=== PATIENT | male | born 1965 ===

== ENCOUNTER 2024-08-04 15:32 | Emergency (ER) | payer SELFPAY ==
--- NOTE | ~2024-08-04 | XR_ITS ---
CHEST RADIOGRAPH, PA AND LATERAL CLINICAL HISTORY: chest pain, FEVER . COMPARISON: None available TECHNIQUE: PA and lateral views of the chest. FINDINGS The cardiomediastinal silhouette is unremarkable. The lungs are clear. Visualized osseous structures and soft tissues are unremarkable. IMPRESSION: No focal infiltrate or effusion. Reviewed, dictated and finalized at location [facility]. [facility]
--- NOTE | 2024-08-04 15:35 | ECG_ITS ---
Test Date: 2024-08-04 15:45:01 Measurements Intervals [place] Rate: 60 P: 35 OK: 193 QRS: 49 QRSD: 90 T: 44 QT: 402 QTc: 403 Interpretive Statements SINUS RHYTHM NORMAL ECG No previous ECG available for comparison Electronically Signed On 08-04-2024 19:46:05 RATE QUOTING OPERATOR by Hi Mckeon D.O.
[2024-08-04 15:37] VITALS: BP 139/67; PULSE 62; RESP 12; TEMP 36.1; O2SAT 98
[2024-08-04 15:48] LABS: Basophils Percent Auto 0.3 % (0.2-1.2); Eosinophils Absolute Auto 0.2 K/mm3 (0-0.3); Eosinophils Percent Auto 2.1 % (0-4.4); Hematocrit 41.6 % (42.0-52.0); Hemoglobin 14.6 g/dL (14.0-18.0); Immature Granulocyte Absolute 0.05 K/mm3 (0.00-0.031); Immature Granulocyte Percent A 0.7 % (0-0.5); Lymphocytes Absolute Auto 1.64 K/mm3 (0.9-3.2); Lymphocytes Percent Auto 23.3 % (18.3-44.2); Mean Corpuscular HGB Conc 35.1 g/dl (32-36); Mean Corpuscular Hemoglobin 29.7 pg (26-34); Mean Corpuscular Volume 84.7 fl (80-100); Mean Platelet Volume 9.8 fl (7.4-10.4); Monocytes Absolute Auto 0.5 K/mm3 (0.1-0.6); Monocytes Percent Auto 6.8 % (2.6-8.5); Neutrophils Absolute Auto 4.7 K/mm3 (1.3-6.7); Neutrophils Percent Auto 66.8 % (45.5-73.1); Platelet Count Result 235 k/mm3 (150-375); Red Blood Count 4.91 M/mm3 (4.6-6.20); Red Cell Distribution Width 11.9 % (11.5-14.5); White Blood Count 7.1 K/mm3 (4.5-10.0)
[2024-08-04] MEDS: ASPIRIN 81 MG CHEWABLE TABLET 324 MG PO (15:49)
--- NOTE | 2024-08-04 15:51 | ED.CHESTPAIN ---
HPI - Chest Pain General Chief Complaint: Chest Pain Stated Complaint: nausea, CP Time Seen by Provider: 08/04/24 15:44 History of Present Illness HPI narrative: 59-year-old otherwise healthy male presenting to the emergency department for evaluation of some chest discomfort radiating towards his neck. Patient states that he is driving from [place] up to home in [place]. Just completed a meal at a rest stop and was having pain and discomfort so he came to the hospital for evaluation. Endorses some mild nauseousness but both his chest pain and nausea have resolved upon arrival to the ER. No back pain, abdominal pain, throwing up, diarrhea, headache, vision changes, fever, chills. No injury trauma. No history of blood clots. Does not take any blood pressure medications, takes medications for anxiety depression but no other medications. Related Data Allergies Allergy/AdvReac Type Severity Reaction Status Date / Time No Known Allergies Allergy Verified 08/04/24 15:34 Review of Systems Review of Systems: As reviewed above in HPI Exam Narrative: GENERAL: [Well-appearing, well-nourished, and in no acute distress.] HEAD: [Normocephalic, atraumatic.] EYES: [PERRLA and EOMI.] ENT: Nares clear, no rhinorrhea or epistaxis. Mucous membranes moist. NECK: Supple. CHEST: [Clear to auscultation. No respiratory distress.] HEART: [Regular rate and rhythm]. No murmur heard. [Normal peripheral pulses.] ABDOMEN: [Soft, nondistended], [nontender], [No rigidity or guarding] EXTREMITIES: Normal range of motion. [No edema.] SKIN: Warm, dry, no rash. NEURO: [No focal deficits]. Alert and oriented [x3.] PSYCH: [Normal mood and affect.] Course Vital Signs Vital signs: Vital Signs Temperature 36.1 C L 08/04/24 15:37 Pulse Rate 62 08/04/24 15:37 Respiratory Rate 12 08/04/24 15:37 Blood Pressure 139/67 08/04/24 15:37 Pulse Oximetry 98 08/04/24 15:37 Oxygen Delivery Room Air 08/04/24 15:37 Temperature 36.1 C L 08/04/24 15:37 Pulse Rate 62 08/04/24 15:37 Respiratory Rate 12 08/04/24 15:37 Blood Pressure 139/67 08/04/24 15:37 Pulse Oximetry 98 08/04/24 15:37 Oxygen Delivery Room Air 08/04/24 15:44 MDM - Chest Pain MDM Narrative Medical decision making narrative: 59-year-old otherwise healthy appearing male presenting to the emergency department for evaluation of chest discomfort radiating towards his neck. Had just finished a meal at a rest stop and was having some chest discomfort while driving so he came to the ER for evaluation. He reports that his symptoms have since stopped and he is not have any chest pain, difficulty breathing, nauseousness, abdominal pain or back pain at this time. Was otherwise in his normal state of health. No history of thrombotic event such as DVT or PE. No evidence of DVT on examination. Strong symmetric pulses in all limbs, warm extremities, clear breath sounds throughout, no chest discomfort presently. Low suspicion ACS or pneumonia, possible early for GERD gastritis. Less likely pneumothorax, low Wells criteria for thromboembolic events and PE can be safely excluded with the lack of vital concerns such as tachycardia or fever. He has normal vital signs. Troponin, EKG, chest x-ray, laboratory studies, lipase and treatment with Pepcid and Zofran provided. Workup shows no leukocytosis or anemia. Normal platelet level. Coagulation studies within normal limits, electrolytes within normal limits, normal renal function panel, normal hepatic function panel, normal glucose. Negative undetectable troponin, negative lipase. Chest x-ray shows no infiltrates or effusion. EKG was normal sinus rhythm without ischemia. Patient was re-evaluated with improvement in the symptoms. Safe and stable for discharge home at this time with outpatient follow-up. Medical Records Data Attestation: I reviewed the patient's medical records. Lab Data Attestation: I reviewed the patient's lab results. 08/04/24 15:44 08/04/24 15:44 Labs: Lab Results 08/04/24 Range/Units 15:44 WBC 7.1 (4.5-10.0) K/mm3 RBC 4.91 (4.6-6.20) M/mm3 Hgb 14.6 (14.0-18.0) g/dL Hct 41.6 L (42.0-52.0) % MCV 84.7 (80-100) fl MCH 29.7 (26-34) pg MCHC 35.1 (32-36) g/dl RDW 11.9 (11.5-14.5) % Plt Count 235 (150-375) k/mm3 MPV 9.8 (7.4-10.4) fl Immature Gran % (Auto) 0.7 H (0-0.5) % Neut % (Auto) 66.8 (45.5-73.1) % Lymph % (Auto) 23.3 (18.3-44.2) % [place] % (Auto) 6.8 (2.6-8.5) % Eos % (Auto) 2.1 (0-4.4) % Baso % (Auto) 0.3 (0.2-1.2) % Lymph # (Auto) 1.64 (0.9-3.2) K/mm3 [place] # (Auto) 0.5 (0.1-0.6) K/mm3 Eos # (Auto) 0.2 (0-0.3) K/mm3 Baso # (Auto) 0.0 (0.0-0.1) K/mm3 Abs Immat Gran (auto) 0.05 H (0.00-0.031) K/mm3 Absolute Neuts (auto) 4.7 (1.3-6.7) K/mm3 Absolute Nucleated RBC 0.000 (0.0-0.012) K/mm3 Nucleated RBC % 0.0 (0.0-0.2) % PT 13.6 (11.1-14.7) Seconds INR 1.0 APTT 27.9 (22.3-36.8) Seconds Sodium 139 (137-145) mmol/L Potassium 3.8 (3.4-5.0) mmol/L Chloride 105 (98-107) mmol/L Carbon Dioxide 25 (22-30) mmol/L Anion Gap 9 (4-12) mmol/L BUN 11 (9-20) mg/dL Creatinine 0.67 L (0.7-1.3) mg/dL Estim Creat Clear Calc 103 ml/min Estimated GFR > 60 (59 - ) Glucose 116 H (65-110) mg/dL Calcium 8.9 (8.4-10.2) mg/dL Total Bilirubin 1.4 H (0.2-1.3) mg/dL AST 19 (17-59) U/L ALT 17 (6-50) U/L Alkaline Phosphatase 61 (38-126) U/L Troponin I < 0.012 (0.000-0.034) ng/mL Total Protein 7.0 (6.3-8.2) g/dL Albumin 4.0 (3.5-5.1) g/dL Lipase 22 L (23-300) U/L Imaging Data Attestation: I personally reviewed and interpreted this imaging study as follows: My impression: Impressions Chest X-Ray 08/04/24 16:16 IMPRESSION: No focal infiltrate or effusion. ECG Data EKG #1: Attestation: I personally reviewed and interpreted this ECG as follows: ECG completion date: 08/04/24 ECG completion time: 15:45 Prior ECG tracings: not available for review Interpretation: Normal sinus rhythm, no signs of ST segment elevations, depressions or inversions. Regular rate rhythm and axis, QTC 4 3, QRS 90, MS interval 193. No previous EKG for comparison. Overall normal sinus rhythm. EKG Interpretation: sinus rhythm Discharge Plan Discharge Clinical Impression: Chest pain Patient Disposition: Home, Self-Care Condition: Stable Instructions: Antibiotic Form, Chest Pain (ED) Additional Instructions: Your cardiac workup was very reassuring, urine undetectable troponin, normal electrolytes, normal liver function panel, no signs of any pneumonia or consolidation. Normal EKG. Follow-up with regular doctor, return with any new or worsening concerns at any time. Patient Language: Divehi Follow-up/Referrals: UNKNOWN,DOCTOR [Primary Care Provider] - Time of Disposition: 16:23 Quality HEART score for chest pain patients History: slightly suspicious ECG: normal Age: > 45 and < 65 years Risk factors: no risk factors known Troponin: < or = to 1x normal limit Heart score: 1
--- OUTSIDE RECORDS SUMMARY | 2024-08-04 15:56 | XMS_ITS | Clinical Summary ---
Author Organization [facility] Address [address] [place] [address] Phone Care Team Providers Care Business Practices Officer Name Role Phone Non-Staff, Physician Primary Care Provider Unava ilable Medications escitalopram oxalate (LEXAPRO) 10 mg tablet Take 10 mg by mouth daily. 11/09/2020 Active Social History Tobacco Use Types Packs/Day Years Used Date Smoking Tobacco: Unknown Sex and Gender Information Value Date Recorded Sex Assigned at Not on file Legal Sex Male 1:36 AM CDT Gender Identity Not on file Sexual Orientation Not on file Last Filed Vital Signs Vital Sign Reading Time Taken Comments Blood Pressure 134/72 11/09/2020 7:00 AM CDT Pulse 59 11/09/2020 7:00 AM CDT Temperature 36.6 C (97.8 F) 11/09/2020 1:39 AM CDT Respiratory Rate 17 11/09/2020 1:39 AM CDT Oxygen Saturation - - Inhaled Oxygen Concentration - - Weight 85 kg (187 lb 6.3 oz) 11/09/2020 1:39 AM CDT Height 175 cm (5' 8.9 ) 11/09/2020 1:39 AM CDT Body Mass Index 27.75 11/09/2020 1:39 AM CDT Plan of Treatment Health Maintenance Due Date Last Done Comments DTAP/TDAP/TD VACCINES (1 - Tdap) 1982 COLORECTAL SCREENING 2008 Colorectal Cancer Screening 2008 FIT-DNA Q 3 years 2008 FIT/FOBT Q 1 year 2008 Flex Sig/CT Colonography Q 5 years 2008 ZOSTER VACCINE (1 of 2) 2013 INFLUENZA VACCINE (#1) 2024 RSV VACCINE (60+ or ) (1 - 1-dose 75+ series) 2038 PNEUMOCOCCAL VACCINE 0-64 YEARS Aged Out No longer eligible based on patient's age to complete this topic Care Teams Business Practices Officer Relationship Specialty Start Date End Date Non-Staff, Physician NO ADDRESS ON FILE PCP - General 11/09/20
[2024-08-04 15:59] LABS: Alanine Aminotransferase 17 U/L (6-50); Alkaline Phosphatase 61 U/L (38-126); Anion Gap 9 mmol/L (4-12); Aspartate Amino Transferase 19 U/L (17-59); Bilirubin,Total 1.4 mg/dL (0.2-1.3); Blood Urea Nitrogen 11 mg/dL (9-20); Calcium 8.9 mg/dL (8.4-10.2); Carbon Dioxide 25 mmol/L (22-30); Chloride 105 mmol/L (98-107); Estimated CRCL calculation 103 ml/min; Estimated Glomerular Filt Rate > 60; Glucose 116 mg/dL (65-110); Lipase 22 U/L (23-300); Potassium 3.8 mmol/L (3.4-5.0); Prothrombin Time 13.6 Seconds (11.1-14.7); Sodium 139 mmol/L (137-145)
[2024-08-04 16:00] LABS: Partial Thromboplastin Time 27.9 Seconds (22.3-36.8)
[2024-08-04] MEDS: ONDANSETRON INJ 4 MG/2 ML VIAL IV PUSH (16:00)
[2024-08-04] MEDS: FAMOTIDINE 20 MG/2 ML VIAL IV PUSH (16:00)
[2024-08-04 16:10] LABS: Troponin I < 0.012 ng/mL (0.000-0.034)
== END 2024-08-04 16:36 | disposition home or self-care (01) ==
PROVIDERS: Emergency Medicine; Emergency Provider Student in an Organized Health Care Education/Training Program
DX: R07.89 Other chest pain (principal)
CPT/HCPCS: 36415; 71046; 80053; 83690; 84484; 85025; 85610; 85730; 93005; 96374; 96375; 99284; A9270; J2405